=== PATIENT | male | born 2000 | race Caucasian/White ===

== ENCOUNTER 2018-04-20 07:07 | Emergency (ER) | payer OTHER, SELFPAY ==
[2018-04-20 07:08] VITALS: BP 152/71; PULSE 76; RESP 18; TEMP 36.6; O2SAT 99; BMI 20.1
--- NOTE | 2018-04-20 07:26 | RAD_ITS ---
STUDY: X-RAY - LEFT TIBIA AND FIBULA REASON FOR EXAM: Male, 17 years old. Crush injury. Bruising and soft tissue swelling. TECHNIQUE: 3 view(s) of the tibia and fibula were obtained. COMPARISON: None. FINDINGS: Normal visualized tibia. Normal visualized fibula. The soft tissue structures are unremarkable. RAD/Tibia & Fibula 2 Views IMPRESSION: Normal x-ray examination of the tibia and fibula. Electronically Signed: Jose Verdin MD at 8:57 EDT Tel [phone], Service support ,
[2018-04-20] MEDS: Ibuprofen 400 MG Tablet 800 MG PO (07:31)
--- NOTE | 2018-04-20 08:36 | ED.VISSUMM ---
- ER Visit Summary Date of Service: 04/20/18 Chief Complaint: Left leg injury History of Present Illness: The patient is a 17 M who was at work today when object fell on his left leg. He notes pain in the mid lopez. He also states that his left great toe cuticle is swollen and has been draining pus. He has been putting hydrogen peroxide on it and Neosporin. This is been present for several days. Physical Examination: Afebrile vital signs stable Gen: Well-nourished well-developed Head: Normocephalic atraumatic Eyes: Perrl EOMI ENT: TMs clear no rhinorrhea moist mucous membranes Neck: Supple no lymphadenopathy no JVD nontender CVS: Regular rate rhythm no murmurs normal S1-S2 Respiratory: No distress clear to auscultation bilaterally chest nontender Abdomen: Soft nontender nondistended normal bowel sounds no masses Back: Nontender Extremity: There is contusion over the mid lopez. No deformity. No lacerations. The left great toe lateral cuticle is swollen draining serosanguineous fluid. It is tender to palpation. It is mildly red. Skin: Normal color no rash Neuro: alert orientated ?3 CN II-XII intact normal strength sensation reflexes gait cerebellar Psych: Normal affect normal mood Test Results: Tib-fib films were negative for fracture Emergency Department Course and Treatment: Patient will receive Motrin for pain. He was given ice. I will start him on Keflex for the toe infection and we talked about antibacterial soaps. Follow-up is with [facility]. Impression: 1. Left leg contusion 2. Left great toe cuticle infection This note was generated with [employer] dictation software. It may contain incorrect words, spelling, and punctuation that were not noted in review of the chart prior to signing ED Disposition - Plan for ED Patient: Disposition: Home or Assisted Living Chief Complaint: Lower Extremity Injury Instructions: ED Toenail Ingrown Infec Abx Onl, ED Contusion Lower Ext Prescriptions: Cephalexin [Keflex] 500 mg PO Q6 #28 cap [facility]errals: [facility]YSIC[facility]ANS] - As Needed
[2018-04-20] MEDS: Cephalexin 250 MG Capsule 500 MG PO (09:02)
[2018-04-20 09:04] VITALS: BP 108/69; PULSE 73; RESP 15; O2SAT 98
== END 2018-04-20 09:04 | disposition home or self-care (01) ==
PROVIDERS: Emergency Provider Emergency Medicine
DX: S80.12XA Contusion of left lower leg, initial encounter (principal); L08.9 Local infection of the skin and subcutaneous tissue, unspecified; W20.8XXA Other cause of strike by thrown, projected or falling object, initial encounter; Y93.89 Activity, other specified; Y92.89 Other specified places as the place of occurrence of the external cause; Y99.0 Civilian activity done for income or pay
CPT/HCPCS: 73590; 99283

== ENCOUNTER 2018-10-21 01:30 | Emergency (ER) | payer OTHER, SELFPAY ==
[2018-10-21 01:32] VITALS: BP 132/56; PULSE 89; RESP 18; TEMP 36.6; O2SAT 100; BMI 20.9
--- NOTE | 2018-10-21 01:42 | ED.RN ---
CALLED [facility] TO TEST THIS PT, [facility] CALLED [facility], THEY ARE UNAWARE OF WHAT TESTING IS NEEDED AND WILL FOLLOW UP TOMORROW.
--- NOTE | 2018-10-21 02:54 | ED.VISSUMM ---
- ER Visit Summary Date of Service: 10/21/18 Chief Complaint: Head injury History of Present Illness: The patient is a 18 M who presents after head injury. He was hit in head with a canvas strap on the right side of the face. No loss of consciousness. No amnesia. No nausea or vomiting. He does complain of a mild to moderate headache. Physical Examination: Afebrile vitals normal Head normocephalic atraumatic I do not appreciate any contusions abrasions hematoma Neck nontender Heart regular rate and rhythm Lungs clear Abdomen soft Alert and oriented GCS 15 no focal or lateralizing neurological deficits No hemotympanum No midface instability Test Results: Not indicated Emergency Department Course and Treatment: Patient presents after head injury with minor mechanism. He is G[place] head CT rule negative. I do not see an indication for any further diagnostic workup at this time. He was advised on supportive care. He was discharged. Treatment Plan: [] Disposition: Discharge Impression: Closed head injury This note was generated with [employer] dictation software. It may contain incorrect words, spelling, and punctuation that were not noted in review of the chart prior to signing ED Disposition - Plan for ED Patient: Referrals: Care Physician,No Primary [Primary Care Provider] -
--- NOTE | 2018-10-21 02:57 | ED.DEP ---
ED Disposition - Plan for ED Patient: Instructions: ED Head Injury Closed Referrals: Care Physician,No Primary [Primary Care Provider] - Corporate,[facility] [GROUP OF PHYSICIANS] -
[2018-10-21 03:04] VITALS: PULSE 76; RESP 16; O2SAT 98
== END 2018-10-21 03:28 | disposition home or self-care (01) ==
PROVIDERS: Emergency Provider Emergency Medicine
DX: S09.90XA Unspecified injury of head, initial encounter (principal); W22.8XXA Striking against or struck by other objects, initial encounter; Y93.9 Activity, unspecified; Y92.89 Other specified places as the place of occurrence of the external cause; Y99.9 Unspecified external cause status; Z72.0 Tobacco use
CPT/HCPCS: 99283

== ENCOUNTER → 2023-03-17 | Outpatient (CLI) | payer OTHER, SELFPAY ==
--- NOTE | 2023-03-17 11:13 | RAD_ITS ---
STUDY: X-RAY - RIGHT FOOT CLINICAL: Male, 22 years old. Right foot contusion TECHNIQUE: 3 view(s) of the foot. COMPARISON: None. FINDINGS: Normal talus, calcaneus, and tarsal bones. Normal visualized subtalar, talonavicular, calcaneocuboid, tarsal and tarsometatarsal articulations. Normal metatarsi. Normal metatarsophalangeal joint of the great toe. Normal tibial and fibular sesamoid bones. Normal interphalangeal joint of the great toe. Normal phalanges of the great toe. Normal second through fifth metatarsophalangeal joints. Normal interphalangeal joints and phalanges of the lesser toes. The soft tissue structures are unremarkable. RAD/Foot min 3 Views IMPRESSION: Normal x-ray examination of the foot. Electronically Signed: Jose Verdin MD at 11:55 EDT ,
== END | disposition home or self-care (01) ==
LOC: MTRAD 11:05
PROVIDERS: PCP Family Medicine; Referring Provider Physician Assistant Surgical; Visit Provider Physician Assistant Surgical
DX: S90.31XA Contusion of right foot, initial encounter (principal); X58.XXXA Exposure to other specified factors, initial encounter
CPT/HCPCS: 73630